=== PATIENT | male | born 1985 | race Two or more races ===

== ENCOUNTER 2021-10-16 14:37 | Emergency (ER) | payer OTHER ==
[~2021-10-16] VITALS: Ht 177.8 cm; Wt 110.0 kg
--- NOTE | 2021-10-16 14:58 | PHYS DOC ---
General Adult EDM: Chief Complaint: CHEST WALL PAIN HPI: HPI: Patient is a 36-year-old who presents to the emergency department via EMS from [facility]. Per EMS patient was found in his correction cell unresponsive and they performed 2 minutes of CPR and administered 2 of Narcan and patient became responsive. When EMS arrived patient was alert and oriented and talking. Patient admits to drinking a quart of snf wine but denies any drug use. Patient is complaining of midsternal chest pain. It does not radiate. He states it feels like a pressure and rates it 2 out of 10. It is reproducible. Patient denies any shortness of breath, nausea, vomiting, cough, fevers. (DIONTE ANGULO APRN) Review of Systems: Review of Systems: Constitutional: negative unless reported in HPI Eyes: negative unless reported in HPI HENT: negative unless reported in HPI Respiratory: negative unless reported in HPI Cardiovascular: negative unless reported in HPI GI: negative unless reported in HPI : negative unless reported in HPI Musculoskeletal: negative unless reported in HPI Integument: negative unless reported in HPI Neurologic: negative unless reported in HPI Endocrine: negative unless reported in HPI Lymphatic: negative unless reported in HPI Psychiatric: negative unless reported in HPI (DIONTE ANGULO APRN) Current Medications: Current Meds: Current Medications Medications (Trade) Dose Ordered Sig/Sd Start Time Stop Time Status Last Admin Dose Admin Naloxone HCl (Narcan) 2 mg 1X ONCE 10/16/21 15:00 10/16/21 15:01 UNV Sodium Chloride 1,000 ml @ 1,000 mls/hr 1X ONCE 10/16/21 15:00 10/16/21 15:59 UNV (DIONTE ANGULO CHUCKING MACHINE OPERATOR) Physical Exam: PE: Constitutional: Well developed, well nourished, no acute distress, non-toxic appearance. [] HENT: Normocephalic, atraumatic, bilateral external ears normal, oropharynx moist, no oral exudates, nose normal. [] Eyes: PERRL, 3 mm bilaterally, EOMI, conjunctiva normal, no discharge. [] Neck: Normal range of motion, no tenderness, supple, no stridor. [] Cardiovascular:Heart rate tachycardic rhythm, no murmur, chest pain reproducible, abrasion noted to center of chest, no flail segments [] Lungs & Thorax: Bilateral breath sounds clear to auscultation [] Abdomen: Bowel sounds normal, soft, no tenderness, no masses, no pulsatile masses. [] Skin: Warm, dry, no erythema, no rash. [] Back: Normal range of motion Extremities: No tenderness, no cyanosis, no clubbing, ROM intact, no edema. [] Neurologic: Alert and oriented X 3, normal motor function, normal sensory function, no focal deficits noted. [] Psychologic: Affect normal, judgement normal, mood normal. [] (DIONTE ANGULO APRN) Current Patient Data: Labs: Laboratory Tests Test 10/16/21 14:55 10/16/21 15:18 10/16/21 16:00 White Blood Count 9.6 x10^3/uL Red Blood Count 5.60 x10^6/uL Hemoglobin 16.8 g/dL Hematocrit 49.5 % Mean Corpuscular Volume 89 fL Mean Corpuscular Hemoglobin 30 pg Mean Corpuscular Hemoglobin Concent 34 g/dL Red Cell Distribution Width 12.4 % Platelet Count 252 x10^3/uL Neutrophils (%) (Auto) 61 % Lymphocytes (%) (Auto) 32 % Monocytes (%) (Auto) 5 % Eosinophils (%) (Auto) 2 % Basophils (%) (Auto) 1 % Neutrophils # (Auto) 5.8 x10^3uL Lymphocytes # (Auto) 3.1 x10^3/uL Monocytes # (Auto) 0.4 x10^3/uL Eosinophils # (Auto) 0.2 x10^3/uL Basophils # (Auto) 0.1 x10^3/uL Sodium Level 138 mmol/L Potassium Level 3.5 mmol/L Chloride Level 101 mmol/L Carbon Dioxide Level 21 mmol/L Anion Gap 16 Blood Urea Nitrogen 14 mg/dL Creatinine 1.3 mg/dL Estimated GFR (Cockcroft-Gault) 61.8 BUN/Creatinine Ratio 11 Glucose Level 112 mg/dL Calcium Level 8.7 mg/dL Total Bilirubin 0.3 mg/dL Aspartate Amino Transf (AST/SGOT) 40 U/L Alanine Aminotransferase (ALT/SGPT) 40 U/L Alkaline Phosphatase 66 U/L Troponin I High Sensitivity 8 ng/L Total Protein 7.2 g/dL Albumin 3.8 g/dL Albumin/Globulin Ratio 1.1 Ethyl Alcohol Level 29 mg/dL Bedside Venous pH 7.36 Bedside Venous pCO2 40 mmHg Bedside Venous pO2 34 mmHg Venous Blood HCO3 23 mmol/L POC Venous O2 Saturation (Ernie) 63 % Bedside FiO2 100 Current Medications Medications (Trade) Dose Ordered Sig/Sd Route PRN Reason Start Time Stop Time Status Last Admin Dose Admin Sodium Chloride 1,000 ml @ 1,000 mls/hr 1X ONCE IV 10/16/21 15:00 10/16/21 15:59 DC 10/16/21 15:00 Naloxone HCl (Narcan) 2 mg 1X ONCE IV 10/16/21 15:00 10/16/21 15:23 DC 10/16/21 15:00 Iohexol (Omnipaque 350 Mg/ml) 100 ml 1X ONCE IV 10/16/21 15:30 10/16/21 15:31 DC 10/16/21 15:41 Ondansetron HCl (Zofran) 4 mg 1X ONCE IVP 10/16/21 15:45 10/16/21 15:46 DC 10/16/21 15:34 Ceftriaxone Sodium 1 gm/ Sodium Chloride 50 ml @ 100 mls/hr 1X ONCE IV 10/16/21 16:30 10/16/21 16:59 Azithromycin 500 mg/Sodium Chloride 250 ml @ 250 mls/hr 1X ONCE IV 10/16/21 16:30 10/16/21 17:29 Heparin Sodium/ Dextrose 250 ml @ 17.6 mls/hr CONT PRN IV SEE I/O RECORD 10/16/21 16:30 Heparin Sodium (Porcine) (Heparin Sodium) 8,800 unit 1X ONCE IV 10/16/21 16:30 10/16/21 16:31 DC Heparin Sodium (Porcine) (Heparin Sodium) 3,300 unit PRN Q6HRS PRN IV FOR PTT LESS THAN 24 SECONDS 10/16/21 16:30 Heparin Sodium (Porcine) (Heparin Sodium) 2,000 unit PRN Q6HRS PRN IV FOR PTT LEVEL 24 - 27 SECONDS 10/16/21 16:30 Heparin Sodium (Porcine) (Heparin Sodium) 1,000 unit PRN Q6HRS PRN IV FOR PTT LEVEL 28 - 37 SECONDS 10/16/21 16:30 (DIONTE ANGULO APRN) EKG: EKG: EKG performed by ER staff at 1505 shows sinus tachycardia with a rate of 106, QTc of 459, no STEMI read by Dr. Rizo at 1510. [] (DIONTE ANGULO APRN) Radiology/Procedures: Radiology/Procedures: []PROCEDURE: PORTABLE CHEST 1V AP chest. HISTORY: Chest pain AP view was taken of the chest. Heart is normal in size. There is no pleural effusion. Patient is mildly rotated to the right. There is no pneumothorax. A slight left perihilar infiltrate is possible versus rotated film and slight motion artifact. PA and lateral views could be of benefit. IMPRESSION: 1. Rotated film versus minimal left perihilar infiltrate. Electronically signed by: Geovany Hi MD (10/16/2021 3:02 PM) [facility] DICTATED AND SIGNED BY: GEOVANY HI MD DATE: 10/16/21 1459 CC: EMERGENCY,DEPARTMENT; DIONTE ANGULO APRN; PCP,NO ~MTH0 0 PROCEDURE: CT ANGIOGRAPHY CHEST CT arteriogram of the chest. HISTORY: Hypoxia, tachycardia CT arteriogram of the chest was done using 100 and now Omnipaque contrast. Coronal MIP images were reconstructed. There is mild heterogeneity in the central pulmonary arteries related to poor mixing of the contrast from the left arm and noncontrast blood from the right arm. There are diffuse bilateral infiltrates which suggest Covid pneumonia. There is no pleural effusion. There is no mediastinal adenopathy. There is decreased density in the anterior segment of the left upper lobe suggesting a pulmonary embolus. Visualized portions of the liver and spleen are unremarkable. Adrenal glands are normal. Tail of pancreas is unremarkable. IMPRESSION: 1. Pulmonary embolus anterior segment left upper lobe. 2. Diffuse bilateral infiltrates suggesting atypical or Covid pneumonia. RS Compliance Statement: One or more of the following individualized dose reduction techniques were utilized for this examination: 1. Automated exposure control 2. Adjustment of the mA and/or kV according to patient size 3. Use of iterative reconstruction technique Electronically signed by: Geovany Hi MD (10/16/2021 4:03 PM) [facility] DICTATED AND SIGNED BY: GEOVANY HI MD DATE: 10/16/21 6331 CC: DIONTE ANGULO APRN; PCP,NO ~MTH0 0 (DIONTE ANGULO APRN) Heart Score: C/O Chest Pain: Yes HEART Score for Chest Pain: HEART Score for Chest Pain Response (Comments) Value History Moderately Suspicious 1 Age < 45 0 Risk Factors No Risk Factors 0 Total 1 Risk Factors: Risk Factors: DM, Current or recent (<one month) smoker, HTN, HLP, family history of CAD, obesity. Risk Scores: Score 0 - 3: 2.5% MACE over next 6 weeks - Discharge Home Score 4 - 6: 20.3% MACE over next 6 weeks - Admit for Clinical Observation Score 7 - 10: 72.7% MACE over next 6 weeks - Early Invasive Strategies (DIONTE ANGULO APRN) Course & Med Decision Making: Course & Med Decision Making Pertinent Labs and Imaging studies reviewed. (See chart for details) [] Patient presents to the emergency department following an overdose in the present patient was given 2 of Narcan and became responsive. Staff at the correction did perform 2 minutes of CPR prior to administering Narcan. Patient does have abrasions to the center of his chest and is reporting chest wall pain. In the ER consisted of blood work, EKG, chest x-ray. Patient was noted to be hypoxic with a room air oxygen saturation of 80%, patient was titrated to 5 L and remained 83 to 84%. Patient was titrated up on a nonrebreather and is 87%. Patient was given IV fluids and additional dose of Narcan. Patient's oxygen saturation has improved after additional dose of Narcan and is currently on 5 L via nasal cannula with an O2 saturation of 94 to 96%. CT angio of the chest performed to rule out a pulmonary embolism as he does have hypoxia and tachycardia. Patient does have a pulmonary embolism in the anterior segment of the left upper lobe as well as diffuse bilateral infiltrates consistent with COVID-pneumonia. Patient will be tested for COVID-19 in the emergency department. Patient will be placed on IV antibiotics to treat the pneumonia as well as heparin protocol for the pulmonary embolism. Patient is requiring a higher level of care. I discussed patient's case with Dr. Jiménez who is a hospitalist at [facility] and he agreed to admit the patient under his services. I discussed these findings with patient and he is agreeable to care plan at this time. Patient is awaiting bed assignment at [facility] at this time 1644. (DIONTE ANGULO APRN) Dragon Disclaimer: Dragon Disclaimer: This electronic medical record was generated, in whole or in part, using a voice recognition dictation system. (DIONTE ANGULO APRN) Attending Co-Sign The patient was seen and interviewed as well as examined at the bedside. The chart was reviewed. The case was discussed. Agree with the plan of care. (RUSTY RIZO DO) Departure Departure: Impression: Primary Impression: Pulmonary embolism Qualified Codes: I26.93 - Single subsegmental pulmonary embolism without acute cor pulmonale Additional Impression: Pneumonia Qualified Codes: J18.9 - Pneumonia, unspecified organism Disposition: 02 SHORT TERM HOSPITAL Condition: STABLE Referrals: PCP,NO (PCP) DIONTE ANGULO APRN Oct 16, 2021 14:58 RUSTY RIZO DO Oct 18, 2021 07:13
[2021-10-16] MEDS ORDERED: IV NORMAL SALINE 1,000ML 1,000 ML IV ONE (15:00)
[2021-10-16] MEDS ORDERED: NALOXONE 2 MG/2 ML DISP.SYRIN. IV ONE (15:00)
--- NOTE | 2021-10-16 15:04 | RAD ---
AP chest. HISTORY: Chest pain AP view was taken of the chest. Heart is normal in size. There is no pleural effusion. Patient is mil dly rotated to the right. There is no pneumothorax. A slight left perihilar infiltrate is possible ve rsus rotated film and slight motion artifact. PA and lateral views could be of benefit. IMPRESSION: 1. Rotated film versus minimal left perihilar infiltrate. Electronically signed by: Geovany Hi MD (10/16/2021 3:02 PM) [facility]
--- NOTE | 2021-10-16 15:19 | EKG ---
[address] [address] Test Date: 2021-10-16 Test Time: 15:05:21 Pat Name: DORIS VALENCIA Department: Room: Gender: M Automotive Machinist: NEELA : 1985 Requested By: DIONTE ANGULO Order Number: [id number] Reading MD: Deon Hearn Measurements Intervals [place] Rate: 106 P: 36 DE: 156 QRS: 50 QRSD: 88 T: 41 QT: 344 QTc: 459 Interpretive Statements SINUS TACHYCARDIA Electronically Signed On 10-20-2021 16:51:07 GAS LINE INSTALLER by Deon Hearn
[2021-10-16] MEDS ORDERED: IOHEXOL 350 MG/ML 100 ML VIAL. IV ONE (15:30)
[2021-10-16] MEDS ORDERED: ONDANSETRON PF 4 MG/2 ML VIAL. IVP ONE (15:45)
[2021-10-16 15:46] LABS: BASO # 0.1 x10^3/uL (0.0-0.2); BASO % 1 % (0-3); EOS # 0.2 x10^3/uL (0.0-0.7); EOS % 2 % (0-3); HEMATOCRIT 49.5 % (39.0-53.0); HEMOGLOBIN 16.8 g/dL (13.0-17.5); LYMPH # 3.1 x10^3/uL (1.0-4.8); LYMPH % 32 % (24-48); MEAN CORPUSCULAR HEMOGLOBIN 30 pg (25-35); MEAN CORPUSCULAR HGB CONC 34 g/dL (31-37); MEAN CORPUSCULAR VOLUME 89 fL (79-100); MONO # 0.4 x10^3/uL (0.0-1.1); MONO % 5 % (0-9); NEUT # 5.8 x10^3uL (1.8-7.7); NEUT % 61 % (31-73); PLATELET COUNT 252 x10^3/uL (140-400); RED CELL DISTRIBUTION WIDTH 12.4 % (11.5-14.5); WHITE BLOOD COUNT 9.6 x10^3/uL (4.0-11.0)
[2021-10-16 15:47] LABS: CALCIUM 8.7 mg/dL (8.5-10.1); CREATININE 1.3 mg/dL (0.7-1.3); GFR 61.8; POTASSIUM 3.5 mmol/L (3.5-5.1)
[2021-10-16 15:53] LABS: ALBUMIN 3.8 g/dL (3.4-5.0); ALBUMIN/GLOBULIN RATIO 1.1 (1.0-1.7); TOTAL BILIRUBIN 0.3 mg/dL (0.2-1.0); TOTAL PROTEIN 7.2 g/dL (6.4-8.2)
--- NOTE | 2021-10-16 16:05 | RAD ---
CT arteriogram of the chest. HISTORY: Hypoxia, tachycardia CT arteriogram of the chest was done using 100 and now Omnipaque contrast. Coronal MIP images were re constructed. There is mild heterogeneity in the central pulmonary arteries related to poor mixing of the contrast from the left arm and noncontrast blood from the right arm. There are diffuse bilateral infiltrates which suggest Covid pneumonia. There is no pleural effusion. There is no mediastinal tonja opathy. There is decreased density in the anterior segment of the left upper lobe suggesting a pulmon mercedes embolus. Visualized portions of the liver and spleen are unremarkable. Adrenal glands are normal. Tail of pancreas is unremarkable. IMPRESSION: 1. Pulmonary embolus anterior segment left upper lobe. 2. Diffuse bilateral infiltrates suggesting atypical or Covid pneumonia. PQRS Compliance Statement: One or more of the following individualized dose reduction techniques were utilized for this examinat ion: 1. Automated exposure control 2. Adjustment of the mA and/or kV according to patient size 3. Use of iterative reconstruction technique Electronically signed by: Geovany Hi MD (10/16/2021 4:03 PM) [facility]
[2021-10-16] MEDS ORDERED: HEPARIN for IV BOLUS 10,000 UNIT/10 ML VIAL. IV PRN ×3 (16:30)
[2021-10-16] MEDS ORDERED: HEPARIN for IV BOLUS 10,000 UNIT/10 ML VIAL. IV ONE (16:30)
[2021-10-16] MEDS ORDERED: AZITHROMYCIN 500 MG in IV NORMAL SALINE 250ML 250 ML IV ONE (16:30)
[2021-10-16] MEDS ORDERED: HEPARIN 25,000UTS/250ML PREMIX 250 ML IV PRN (16:30)
[2021-10-16 17:17] LABS: BARBITURATES NEG (NEG); BENZODIAZEPINES NEG (NEG); CANNABINOIDS NEG (NEG); COCAINE NEG (NEG); METHADONE NEG (NEG); OPIATES NEG (NEG); PHENCYCLIDINE NEG (NEG)
[2021-10-16 17:19] LABS: AMPHETAMINE/METHAMPHETAMINE NEG (NEG)
[2021-10-16 17:52] LABS: BACTERIA,URINE 0 /HPF (0-FEW); BILIRUBIN,URINE NEG (NEG); CLARITY,URINE CLEAR; COLOR,URINE YELLOW; GLUCOSE,URINE NEG (NEG); NITRITE,URINE NEG (NEG); UROBILINOGEN,URINE 0.2 mg/dL (0.2 mg/dL); WBC,URINE 0 /HPF (0-4)
[2021-10-16] MEDS ORDERED: IV NORMAL SALINE 250ML 0 ML ONE (19:07)
[2021-10-16] MEDS ORDERED: IV NORMAL SALINE 50ML 50 ML ONE (19:07)
[2021-10-16] MEDS ORDERED: cefTRIAXone SODIUM 1 GM VIAL ONE (19:07)
[2021-10-16] MEDS ORDERED: AZITHROMYCIN 500 MG VIAL. IV ONE ×2 (19:07→19:51)
[2021-10-16 19:37] VITALS: BP 123/84
[2021-10-16] MEDS ORDERED: IV NORMAL SALINE 250ML 250 ML ONE (19:51)
== END 2021-10-16 20:04 | disposition short-term general hospital (02) ==
LOC: ER 14:37 → EEVIPCON 14:37 → ER 20:04
DX: U07.1 COVID-19 (principal); I26.93 Single subsegmental thrombotic pulmonary embolism without acute cor pulmonale; J18.9 Pneumonia, unspecified organism
CPT/HCPCS: 36415; 71045; 71275; 80053; 80307; 81001; 82803; 84484; 85025; 87426; 93005; 96361; 96365; 96366; 96375; 96376; 99285; C9803; G0480; J0456; J0696; J1644; J2310; J2405; J7030; J7050; Q9967; U0003; 96367